=== PATIENT | female | born 1975 | race Caucasian/White ===

== ENCOUNTER → 2018-04-24 | Outpatient (CLI) | payer SELFPAY, OTHER | LOC: M SLEEP 19:35 | DX: G47.30 Sleep apnea, unspecified (principal) | CPT/HCPCS: 95810 ==

== ENCOUNTER → 2018-05-22 | Outpatient (CLI) | payer BC, OTHER | LOC: M SLEEP 19:26 | DX: G47.33 Obstructive sleep apnea (adult) (pediatric) (principal) | CPT/HCPCS: 95811 ==

== ENCOUNTER 2019-02-07 06:40 | Emergency (ER) | payer BC, OTHER ==
[~2019-02-07] VITALS: Ht 167.6 cm; Wt 140.9 kg
[2019-02-07] MEDS ORDERED: LEVO200T4 PO (06:46)
[2019-02-07] MEDS ORDERED: VALS1TAB68 PO (07:24)
[2019-02-07 07:27] LABS: BASO # 0.1 10^3/uL (0.0-0.2); BASO % 0.5 % (0.0-1.0); EOS # 0.2 10^3/uL (0.0-0.50); EOS % 1.8 % (0.0-3.0); HEMATOCRIT 43.4 % (36.0-47.0); HEMOGLOBIN 14.2 g/dl (12.0-15.5); LYMPH # 2.3 10^3/uL (1.5-4.5); LYMPH % 18.3 % (24.0-44.0); MEAN CORPUSCULAR HEMOGLOBIN 28.9 pg (27.0-33.0); MEAN CORPUSCULAR HGB CONC 32.7 g/dl (32.0-36.5); MEAN CORPUSCULAR VOLUME 88.2 fl (80.0-96.0); MONO # 0.7 10^3/uL (0.0-0.8); MONO % 5.8 % (0.0-5.0); NEUTROPHILS # 9.1 10^3/uL (1.8-7.7); NEUTROPHILS % 73.1 % (36.0-66.0); PLATELET COUNT, AUTOMATED 292 10^3/uL (150-450); RED BLOOD COUNT 4.92 10^6/uL (4.00-5.40); WHITE BLOOD COUNT 12.5 10^3/uL (4.0-10.0)
[2019-02-07 08:00] LABS: BLOOD UREA NITROGEN 13 MG/DL (7-18); CALCIUM LEVEL 8.8 MG/DL (8.5-10.1); CARBON DIOXIDE LEVEL 27 MEQ/L (21-32); CHLORIDE LEVEL 102 MEQ/L (98-107); CK-MB VALUE MASS < 1.0 NG/ML (<3.6); CPK CREATINE PHOSPHOKINASE 110 U/L (26-192); CREATININE FOR GFR 0.98 MG/DL (0.55-1.30); FREE THYROXINE INDEX 3.6 % (1.3-4.8); GLOMERULAR FILTRATION RATE > 60.0 (>58); GLUCOSE, FASTING 134 MG/DL (70-100); MB/CK RELATIVE INDEX 0.91 (< OR =4); POTASSIUM SERUM 3.6 MEQ/L (3.5-5.1); SODIUM LEVEL 141 MEQ/L (136-145); T UPTAKE 30 % (30-39); THYROXINE (T4) 12.1 UG/DL (4.5-12.0); TROPONIN I < 0.02 NG/ML (< 0.10)
[2019-02-07 10:43] LABS: CK-MB VALUE MASS < 1.0 NG/ML (<3.6); CPK CREATINE PHOSPHOKINASE 112 U/L (26-192); MB/CK RELATIVE INDEX 0.89 (< OR =4); TROPONIN I < 0.02 NG/ML (< 0.10)
--- NOTE | 2019-02-07 11:23 | ECGEPIP ---
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
--- NOTE | 2019-02-07 11:25 | ECGEPIP ---
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
[2019-02-07 11:26] VITALS: BP 141/67
--- NOTE | 2019-02-18 15:36 | REP ---
Clinical: Acute chest pain Comparison: None . Findings: The mediastinum and cardiac silhouette are stable and within normal limits for portable technique. The lung martines are clear without acute consolidation, effusion, or pneumothorax. Skeletal structures are intact. Impression: No acute cardiopulmonary process appreciated. Electronically Signed by Reese Mehta MD 02/07/2019 07:30 A
== END 2019-02-07 11:27 | disposition home or self-care (01) ==
LOC: M ED 06:40
DX: R00.2 Palpitations (principal); I49.3 Ventricular premature depolarization; I10 Essential (primary) hypertension; E89.0 Postprocedural hypothyroidism; Z88.0 Allergy status to penicillin; Z79.899 Other long term (current) drug therapy

== ENCOUNTER → 2020-04-05 | Outpatient (CLI) | payer BC ==
[~2020-04-05] MED LIST: ACET1TAB55 PO; ASCO250T20 PO; LEVO200T4 PO; TORS20TA2 PO; VALS1TAB68 PO
== END ==
LOC: M LABSMTC 10:58
PROVIDERS: ATTEND Anesthesiology
DX: Z01.812 Encounter for preprocedural laboratory examination (principal); Z20.828 Contact with and (suspected) exposure to other viral communicable diseases
CPT/HCPCS: C9803; U0002

== ENCOUNTER 2020-04-08 12:12 | Day surgery (SDC) | payer BC ==
[~2020-04-08] VITALS: Ht 165.1 cm; Wt 90.5 kg
[2020-04-08] VITALS (7 sets, daily range): BP systolic 130–156; BP diastolic 70–92
[~2020-04-08 12:12] MED LIST changes: -ACET1TAB55 PO; -ASCO250T20 PO; +LIDOCAINE 2% 100MG/5ML SDV (FOR ANES.) As Ordered ONE; +MIDAZOLAM INJ 2MG/2ML VIAL (J2250 PER 1MG) As Ordered ONE; +ONDANSETRON 4MG/2ML VIAL As Ordered ONE; +dexameTHASONE 4 MG/ML 1ML VIAL (J1100 PER 1MG) As Ordered ONE; +fentaNYL 100 MCG/2 ML INJECTION (J3010) As Ordered ONE; +propofoL 500 MG/50 ML VIAL As Ordered ONE
[2020-04-08] MEDS ORDERED: ceFAZolin 2 GM/D5W 50 ML IV BAG (J0690 PER 500MG) As Ordered ONE (12:24)
[2020-04-08] MEDS ORDERED: ceFAZolin SOD 2 GM in IV 1 EA IV ONE (13:00)
[2020-04-08] MEDS ORDERED: LR 1,000 ML IV ONE (13:00)
[2020-04-08] MEDS ORDERED: MUPIROCIN 2% OINT 22 GM TUBE As Ordered ONE (13:36)
[2020-04-08] MEDS ORDERED: LIDOCAINE 1% SDV 30ML VIAL As Ordered ONE (13:36)
[2020-04-08] MEDS ORDERED: ISOVUE-300 61% 50ML VIAL As Ordered ONE (13:37)
[2020-04-08] MEDS ORDERED: propofoL 200 MG/20 ML VIAL As Ordered ONE ×3 (15:12→16:05)
[2020-04-08] MEDS ORDERED: PERCOCET 5MG/325MG TAB PO PRN (18:15)
[2020-04-08] MEDS ORDERED: fentaNYL 100 MCG/2 ML INJECTION (J3010) IV PRN (18:15)
[2020-04-08] MEDS ORDERED: LR 1,000 ML IV SCH (18:15)
[2020-04-08] MEDS ORDERED: ONDANSETRON 4MG/2ML VIAL IV PRN (18:15)
[2020-04-08] MEDS: ASCORBIC ACID 250 MG TAB PO SCH (20:37)
[2020-04-08] MEDS: ACETAMINOPHEN TAB 650MG DOSE (2X325MG) PO PRN (23:43)
[2020-04-08] MEDS ORDERED: zolPIDEM TARTRATE 5 MG TAB PO PRN (23:45)
[2020-04-09] VITALS: BP 124/84
[2020-04-09 04:00] VITALS: BP 152/96
[2020-04-09] MEDS ORDERED: LEVOTHYROXINE 100MCG TABLET (0.1MG) PO SCH (06:00)
[2020-04-09 08:00] VITALS: BP 144/70
[2020-04-09] MEDS: ASCORBIC ACID 250 MG TAB PO SCH (08:18)
--- NOTE | 2020-04-09 08:22 | REPVR ---
PROCEDURE INFORMATION: Exam: XR Chest, 2 Views Exam date and time: 04/09/2020 7:49 AM Age: 45 years old Clinical indication: Device placement; Cardiac pacemaker lead placement or adjustment; Additional info: PT had a pacemaker placed TECHNIQUE: Imaging protocol: XR of the chest Views: 2 views. COMPARISON: CR Chest, 1 view 04/08/2020 5:03 PM FINDINGS: Tubes, catheters and devices: A pacemaker device is present, and its leads are in appropriate position. Limitation: Multiple EKG leads are superimposed on the chest. Lungs: Unremarkable. No consolidation. Pleural space: Unremarkable. No pleural effusion. No pneumothorax. Heart/Mediastinum: Unremarkable. No cardiomegaly. Bones/joints: Unremarkable. Soft tissues: No evidence of an acute chest abnormality. Intraperitoneal space: Surgical clips are present in the right upper quadrant, consistent with previous cholecystectomy. IMPRESSION: 1. A pacemaker device is present, and its leads are in appropriate position. 2. No evidence of an acute chest abnormality. Electronically signed by: Darius Acevedo On 04/09/2020 08:22:24 AM
[2020-04-09] MEDS: ACETAMINOPHEN TAB 650MG DOSE (2X325MG) PO PRN (08:41)
[2020-04-09] MEDS ORDERED: TORSEMIDE 20 MG TAB PO SCH (09:00)
[2020-04-09] MEDS ORDERED: ASCO250T20 PO (11:48)
[2020-04-09] MEDS ORDERED: ACET1TAB55 PO (11:48)
[2020-04-09 12:00] VITALS: BP 114/77
--- NOTE | 2020-04-25 11:59 | RO ---
DATE OF OPERATION: 04/08/2020 PREOPERATIVE DIAGNOSIS: Sick sinus syndrome. POSTOPERATIVE DIAGNOSIS: Sick sinus syndrome. FINDINGS: Sick sinus syndrome. PROCEDURE PERFORMED: Implantation of a permanent dual-chamber pacemaker (Biotronik). SURGEON: Harjinder Tyler M.D. COLLAR TURNER OPERATOR: None. ANESTHESIA: Lidocaine 1% local anesthetic, monitored anesthesia care. SPECIMENS: None. ESTIMATED BLOOD LOSS: 5 mL. No blood products replaced. DRAINS: None. COMPLICATIONS: None. PROCEDURE DESCRIPTION: Patient was prepped and draped over the left pectoral region. 3M Ioban film was applied. Lidocaine 1% was used for local anesthetic. A left subclavian venogram was performed via a peripheral intravenous (IV) in the hand using a total volume of 20 mL, consisting of a mixture of five parts contrast to one part normal saline. This was used in real time to try to obtain percutaneous venous access with a micropuncture needle to the left subclavian vein. Unfortunately, this was not successful. I then took a hollow steel needle that came with one of the 6-Finnish sheaths and placed the needle approximately 1.5 cm below the edge of the clavicle, approximately at the lateral one-third of the clavicle and in toward the suprasternal notch. This was successful vein access, and the guidewire that came with one of the 6-Finnish sheaths was placed into the vein. The hollow steel needle was removed. Next, an incision approximately 2-1/2 inches in length was made through the skin using a PEAK PlasmaBlade. The PEAK PlasmaBlade was used to get through the fatty layer and through the fibrous Leatha's fascia. I then formed the pacemaker pocket in a caudal direction using blunt dissection using two fingers to form the pacemaker pocket. The guidewire was then pulled through the skin into the incision site. Next, I placed one of the 6-Finnish sheath with introducers over the guidewire. I then kept the guidewire and sheath in place and removed the introducer. I then placed a second guidewire from the other 6-Finnish sheath alongside the first guidewire within the same sheath. Next, the two guidewires were left in place in the vein, and the 6-Finnish sheath was removed. I then placed the introducer back into the 6-Finnish sheath and then placed it over one of the two guidewires and advanced it into the vein. Next, the guidewire and the introducer were removed, leaving the 6-Finnish sheath in place. The ventricular lead was then placed into the 6-Finnish sheath and advanced under fluoroscopic guidance into the right ventricular apex position, where it was secured with a total of 10 turns. This position was found to be electrically and anatomically satisfactory. No diaphragmatic stimulation could be palpated at 10 volts high-output pacing on either side of the diaphragm. Next, the other 6-Finnish sheath with introducer was placed over the other guidewire and advanced into the vein. This was used for vein access for the right atrial lead. The right atrial lead was placed under fluoroscopic guidance into the right atrial appendage position using the assistance of a preformed J stylette. It was secured with a total of 10 turns. This position was found to be electrically and anatomically satisfactory. The 6- Finnish sheath was then broken apart and removed. Next, the atrial and ventricular leads were secured to the pectoral muscle using two individual sutures on each tie-down sleeve for each lead to secure the tie-down sleeve to the pectoral muscle using 0 Ethibond suture material. Next, I took another 0 Ethibond suture and placed it to the pectoral muscle to serve as the tie-down for the pacemaker pulse generator. The terminal pins of the ventricle and atrial pacemaker leads were plugged into the respective ports in the header of the pacemaker pulse generator, and each one was secured by tightening the set screws with the hex screwdriver. The excess lead material was then coiled underneath the pacemaker pulse generator and placed into the pacemaker pocket along with the pacemaker pulse generator with the excess lead material below the pulse generator on top. At this point, a final fluoroscopic picture was obtained in the operating room (OR) to demonstrate the final lead position in the operating room. Next, the deep layer was closed using individual sutures consisting of 2-0 Vicryl, and then a few additional 3-0 Vicryl sutures were used to help approximate the more superficial layer. The skin was then approximated using mile. Following this, Bactroban ointment was applied over the incision line followed by Telfa followed by a bio-occlusive dressing and then a left arm sling. The pacemaker pulse generator implanted was a [employer] [place] 8 DR-T. It had serial #[id number] and reference #[id number]. The right ventricle lead implanted was a Biotronik Solia F 60 with serial #[id number] and reference #[id number]. Device-based testing in the operating room showed R-wave amplitude of 9.0 millivolts in bipolar configuration and capture threshold in bipolar configuration of 0.5 volts at 0.4 milliseconds with lead impedance of 741 ohms. The atrial lead implanted was a Biotronik Solia F 53 with serial #[id number] with reference #[id number]. Device-based testing in the operating room for the atrial lead showed P-wave amplitude of 1.2 millivolts in bipolar configuration with capture threshold of 1.0 volts at 0.4 milliseconds in bipolar configuration with lead impedance of 507 ohms. [facility]
--- NOTE | 2020-04-29 14:35 | ECGEPIP ---
[facility] Test Date: 2020-04-08 Pat Name: BRODY STERN Department: Room: [place] [address] Gender: Female Last Marker: ALMAZ : 1975 Requested By: Harjinder Tyler Order Number: [id number] Reading MD: Carley Fox Measurements Intervals [place] Rate: 54 P: 144 NE: 189 QRS: -16 QRSD: 105 T: 24 QT: 437 QTc: 418 Interpretive Statements SINUS BRADYCARDIA LOW QRS VOLTAGE IN PRECORDIAL LEADS POSSIBLE ANTERIOR MYOCARDIAL INFARCTION, OF INDETERMINATE AGE, PRWP ABNORMAL ECG LAD, ST/T WITH ABNORMALITY DIFFUSELY ST IN I (ONE) DIFFICULT TO EVALUATE SEE SCANNED DOWNTIME REPORT
--- NOTE | 2020-05-10 07:52 | REP ---
PORTABLE CHEST X-RAY CLINICAL: Status post pacemaker placement. COMPARISON: 02/07/2019. FINDINGS: Mediastinum and cardiac silhouette are within normal limits. Dual-lead pacemaker is now identified with leads overlying the right atrium and right ventricle. The lung martines are clear. No consolidation, effusion, or pneumothorax. Skeletal structures intact. IMPRESSION: Status post pacemaker. No pneumothorax MTDD
--- NOTE | 2020-05-10 07:56 | REP ---
HISTORY: Dual-chamber pacemaker. 7 minutes 35 seconds of fluoroscopy time is reported. FINDINGS: A single last image hold fluoroscopically obtained spot radiograph of the chest documents pacemaker lead position. MTDD
== END 2020-04-09 14:00 | disposition home or self-care (01) ==
LOC: M SDC 12:12 → M PCU 17:38 → M SDC 04-09 14:00
PROVIDERS: ATTEND Internal Medicine Cardiovascular Disease
DX: I49.5 Sick sinus syndrome (principal); I10 Essential (primary) hypertension; G47.30 Sleep apnea, unspecified; Z98.84 Bariatric surgery status; E03.9 Hypothyroidism, unspecified; Z79.899 Other long term (current) drug therapy; Z88.0 Allergy status to penicillin
CPT/HCPCS: 33208; 71045; 71046; 76000; 93005; C1713; C1785; C1898; J0690; J1100; J2250; J2405; J3010; Q9967

== ENCOUNTER 2020-12-21 06:37 | Emergency (ER) | payer BC ==
[~2020-12-21] VITALS: Ht 165.1 cm; Wt 82.3 kg
[~2020-12-21 06:37] MED LIST changes: +ACET1TAB55 PO; +ASCO250T20 PO; -LIDOCAINE 2% 100MG/5ML SDV (FOR ANES.) As Ordered ONE; -MIDAZOLAM INJ 2MG/2ML VIAL (J2250 PER 1MG) As Ordered ONE; -ONDANSETRON 4MG/2ML VIAL As Ordered ONE; -dexameTHASONE 4 MG/ML 1ML VIAL (J1100 PER 1MG) As Ordered ONE; -fentaNYL 100 MCG/2 ML INJECTION (J3010) As Ordered ONE; -propofoL 500 MG/50 ML VIAL As Ordered ONE
[2020-12-21] MEDS ORDERED: SOTA80TA53 (06:50)
[2020-12-21] MEDS ORDERED: NS 1,000 ML IV ONE (07:35)
[2020-12-21 07:49] LABS: BASO # 0.1 10^3/uL (0.0-0.2); BASO % 0.9 % (0.0-1.0); EOS # 0.2 10^3/uL (0.0-0.5); EOS % 2.3 % (0.0-3.0); HEMOGLOBIN 12.9 g/dl (12.0-15.5); LYMPH # 2.4 10^3/uL (1.5-5.0); LYMPH % 31.3 % (24.0-44.0); MEAN CORPUSCULAR HEMOGLOBIN 28.9 pg (27.0-33.0); MEAN CORPUSCULAR HGB CONC 32.3 g/dl (32.0-36.5); MEAN CORPUSCULAR VOLUME 89.5 fl (80.0-96.0); MONO # 0.5 10^3/uL (0.0-0.8); MONO % 6.4 % (2.0-8.0); NEUTROPHILS # 4.5 10^3/uL (1.5-8.5); NEUTROPHILS % 58.8 % (36.0-66.0); PLATELET COUNT, AUTOMATED 237 10^3/uL (150-450); RED BLOOD COUNT 4.47 10^6/uL (4.00-5.40); WHITE BLOOD COUNT 7.7 10^3/uL (4.0-10.0)
[2020-12-21 08:02] LABS: ALT/SGPT 29 U/L (12-78); BILIRUBIN,DIRECT 0.1 MG/DL (0.0-0.2); BILIRUBIN,TOTAL 0.4 MG/DL (0.2-1.0); BLOOD UREA NITROGEN 13 MG/DL (7-18); CALCIUM LEVEL 9.7 MG/DL (8.5-10.1); CARBON DIOXIDE LEVEL 29 MEQ/L (21-32); CHLORIDE LEVEL 107 MEQ/L (98-107); CREATININE FOR GFR 0.66 MG/DL (0.55-1.30); GLOMERULAR FILTRATION RATE > 60.0 (>58); GLUCOSE, FASTING 83 MG/DL (70-100); LIPASE 78 U/L (73-393); POTASSIUM SERUM 3.8 MEQ/L (3.5-5.1); SODIUM LEVEL 143 MEQ/L (136-145); TOTAL PROTEIN 6.8 GM/DL (6.4-8.2)
[2020-12-21] MEDS ORDERED: COLA100C5 PO (09:20)
[2020-12-21] MEDS ORDERED: PROT1TAB2 PO (09:20)
[2020-12-21 09:25] VITALS: BP 127/76
== END 2020-12-21 09:45 | disposition home or self-care (01) ==
LOC: M ED 06:37
DX: R10.13 Epigastric pain (principal); R19.09 Other intra-abdominal and pelvic swelling, mass and lump; K90.3 Pancreatic steatorrhea; I48.91 Unspecified atrial fibrillation; Z79.890 Hormone replacement therapy; Z79.899 Other long term (current) drug therapy; Z88.0 Allergy status to penicillin